=== PATIENT | female | born 1980 | race Caucasian/White ===

== ENCOUNTER 2016-06-22 10:48 | Observation (INO) | payer OTHER ==
[~2016-06-22] VITALS: Ht 165.1 cm; Wt 46.0 kg
[~2016-06-22 10:48] MED LIST: IBUP800T PO; OXYC-302 PO; SENN-1 PO
[2016-06-22] MEDS ORDERED: SODIUM BICARBONATE 4.2%, 5ML ONE (11:07)
[2016-06-22] MEDS ORDERED: LIDOCAINE 1%, 20ML ONE (11:07)
[2016-06-22 12:14] VITALS: BP 99/62
[2016-06-22] MEDS ORDERED: LACTATED RINGERS 1,000 ML IV SCH (12:27)
[2016-06-22] MEDS ORDERED: LACT1CAP40 PO (12:30)
[2016-06-22] MEDS ORDERED: PLEASE ENTER HEIGHT AND WEIGHT MC SCH (12:30)
[2016-06-22 12:35] LABS: HCG UR OBC PASS
[2016-06-22 12:41] LABS: ASPARTATE AMINO TRANSFERASE 19 U/L (15-37); BLOOD UREA NITROGEN 8 mg/dL (7-18)
[2016-06-22] MEDS ORDERED: ISOSULFAN BLUE 10 MG/ML, 5ML IV ONE ×2 (15:00→15:20)
[2016-06-22] MEDS ORDERED: BUPIVACAINE/PF-EPI 0.5% 1:200K ONE ×2 (15:01→15:20)
[2016-06-22] MEDS ORDERED: BUPIVACAINE/PF 0.25% ONE (15:22)
[2016-06-22] MEDS ORDERED: BUPIVACAINE/PF-EPI 0.25% 1:200K ONE (15:23)
[2016-06-22] MEDS ORDERED: FENTANYL PF 250 MCG/5ML ONE (15:36)
[2016-06-22] MEDS ORDERED: MIDAZOLAM 1 MG/ML, 2ML ONE (15:36)
[2016-06-22] MEDS ORDERED: ONDANSETRON 2MG/ML, 2ML ONE (15:37)
[2016-06-22] MEDS ORDERED: DEXAMETHASONE 4 MG/ML, 1ML ONE (15:37)
[2016-06-22] MEDS ORDERED: GLYCOPYRROLATE 0.2MG/1ML ONE (15:37)
[2016-06-22] MEDS ORDERED: ROCURONIUM 10 MG/ML ONE (15:37)
[2016-06-22] MEDS ORDERED: NEOSTIGMINE 1 MG/ML, 10ML ONE (15:37)
[2016-06-22] MEDS ORDERED: SUCCINYLCHOLINE 20 MG/ML, 10ML ONE (15:37)
[2016-06-22] MEDS ORDERED: EPHEDRINE 50 MG/ML, 1ML ONE (15:37)
[2016-06-22] MEDS ORDERED: PROPOFOL 10 MG/ML, 20ML ONE (15:37)
[2016-06-22] MEDS ORDERED: CEFAZOLIN 1,000 MG ONE (15:37)
[2016-06-22] MEDS ORDERED: BACITRACIN 50,000 UNIT ONE (15:58)
[2016-06-22] MEDS ORDERED: HYDROmorphone 1 MG/ML, 1ML ONE (16:47)
[2016-06-22] MEDS ORDERED: OXYcodone 5 MG/5 ML ORAL.SOL UDC ONE (18:52)
[2016-06-22] MEDS ORDERED: FENTANYL PF 100 MCG/2ML ONE (18:52)
[2016-06-22] MEDS ORDERED: ACETAMINOPHEN 650 MG/20.3 ML UDC ONE (18:52)
[2016-06-22] MEDS ORDERED: ONDANSETRON 2MG/ML, 2ML IVPush PRN ×2 (19:00→22:00)
[2016-06-22] MEDS ORDERED: METOCLOPRAMIDE 5 MG/ML, 2ML IV PRN (19:00)
[2016-06-22] MEDS ORDERED: FENTANYL PF 100 MCG/2ML IV PRN (19:00)
[2016-06-22] MEDS ORDERED: hydrALAzine 20 MG/ML, 1ML IV PRN (19:00)
[2016-06-22] MEDS ORDERED: LABETALOL 5MG/ML, 20ML IV PRN (19:00)
[2016-06-22] MEDS ORDERED: HYDROmorphone 1 MG/ML, 1ML IV PRN (19:00)
[2016-06-22] MEDS ORDERED: OXYcodone 5 MG/5 ML ORAL.SOL UDC PO PRN (19:00)
[2016-06-22] MEDS ORDERED: MEPERIDINE/PF 25MG/0.5ML IVPush PRN (19:00)
[2016-06-22] MEDS ORDERED: PROMETHAZINE 25 MG/ML, 1ML IV PRN (19:00)
[2016-06-22] MEDS ORDERED: MIDAZOLAM 1 MG/ML, 2ML IV PRN (19:00)
[2016-06-22] MEDS ORDERED: ACETAMINOPHEN 325 MG TABLET PO PRN (19:00)
[2016-06-22] MEDS ORDERED: METOCLOPRAMIDE 5 MG/ML, 2ML ONE (19:57)
[2016-06-22] MEDS ORDERED: MORPHINE SULFATE 4 MG/ML, 1ML ONE (20:40)
[2016-06-22] MEDS ORDERED: ONDA4TAB7 PO (20:44)
[2016-06-22] MEDS ORDERED: HYDR-883 PO (20:45)
[2016-06-22] MEDS ORDERED: CEPH-368 PO (20:46)
[2016-06-22 21:00] VITALS: BP 102/65
[2016-06-23] MEDS ORDERED: CEFAZOLIN PMX 2GM/100ML 100 ML IVPB SCH (00:30)
[2016-06-23] MEDS ORDERED: POTASSIUM CHLORIDE 20 MEQ in D5%-0.45% NACL 1,000 ML IV SCH (00:30)
[2016-06-23] MEDS ORDERED: hydrALAzine 20 MG/ML, 1ML IV PRN (00:30)
[2016-06-23] MEDS ORDERED: DIPHENHYDRAMINE 50 MG/ML, 1ML IV PRN (00:30)
[2016-06-23] MEDS ORDERED: ENALAPRILAT 1.25 MG/ML, 2ML IV PRN (00:30)
[2016-06-23] MEDS ORDERED: DIPHENHYDRAMINE 25 MG CAPSULE PO PRN (00:30)
[2016-06-23 02:00] VITALS: BP 104/62
[2016-06-23] MEDS: MORPHINE SULFATE 4 MG/ML, 1ML IVPush PRN ×2 (04:58→06:07)
[2016-06-23 05:05] VITALS: BP 100/63
[2016-06-23] MEDS ORDERED: CEFAZOLIN PMX 2GM/50ML 50 ML IVPB SCH (06:57)
[2016-06-23 09:10] VITALS: BP 101/67
[2016-06-23 11:36] VITALS: BP 99/62
== END 2016-06-23 11:55 | disposition home or self-care (01) ==
LOC: OUT 10:48 → 4NOR 20:20 → OUT 23:51 → 4NOR 23:52
PROVIDERS: ADMIT Surgery; ATTEND Surgery
DX: D05.11 Intraductal carcinoma in situ of right breast (principal); D48.62 Neoplasm of uncertain behavior of left breast; D48.61 Neoplasm of uncertain behavior of right breast; Z90.49 Acquired absence of other specified parts of digestive tract
CPT/HCPCS: 19303; 19357; 36415; 38525; 38792; 80053; 81025; 88307; 88333; 96365; 96375; 96376; A9541; C1729; C1789; G0378; J0330; J0690; J1100; J1170; J1200; J2250; J2405; J2704; J2710; J2765; J3010; J3480; J3490; J7120